=== PATIENT | male | born 1990 | race American Indian/Alaskan Native ===

== ENCOUNTER 2016-09-01 12:45 | Emergency (ER) | payer SELFPAY ==
[2016-09-01 13:53] VITALS: BP 134/88
[2016-09-01 14:20] LABS: Bilirubin,Urine NEG (Negative); Blood,Urine LG (Negative); Ketones,Urine NEG (Negative); Leukocyte Esterase,Urine LG (Negative); Mucus,Urine 1+ /HPF; Nitrite,Urine NEG (Negative); Urobilinogen,Urine < 2.0 mg/dL (<2.0)
[2016-09-01 14:21] LABS: WBC,Urine > 182.0 /HPF (0.0-6.0)
--- NOTE | 2016-09-01 14:48 | Emergency Department Report ---
HPI - General Chief Complaint: Back Pain/Injury Time Seen by Provider: 09/01/16 14:17 - HPI HPI: 25-year-old male presents today with right-sided low back pain 1 week. Positive for burning upon urination, increased urinary frequency and urgency. Patient states that he tried Azo with some relief. Describes his pain as 8 out of 10 throbbing pain that comes and goes. Denies any preceding event or heavy lifting. Denies history of kidney stones. Positive for nausea and blood in urine. Denies fever, chills, chest pain, shortness of breath, abdominal pain, penile discharge. Patient is not currently sexually active. ED Past Medical Hx - Past Medical History Previous Medical History?: No - Surgical History Past Surgical History?: No - Social History Smoking Status: Current Every Day Smoker Substance Use Type: Alcohol, Non Opiate Pain - Medications Home Medications: Home Medications Medication Instructions Recorded Confirmed Last Taken Type Levofloxacin [Levaquin TAB] 750 mg PO QDAY #7 tablet 09/01/16 Unknown Rx Phenazopyridine [Pyridium] 200 mg PO TID #6 tab 09/01/16 Unknown Rx ED Review of Systems ROS: Stated complaint: LOWER BACK PAIN, PAINFUL URINATION Other details as noted in HPI Constitutional: denies: chills, fever, malaise Eyes: denies: eye pain ENT: denies: ear pain, throat pain, congestion Respiratory: denies: cough, shortness of breath, wheezing Cardiovascular: denies: chest pain, palpitations Endocrine: no symptoms reported Gastrointestinal: denies: abdominal pain, nausea, vomiting Genitourinary: urgency, dysuria, frequency, hematuria. denies: discharge, testicular pain, testicular mass Musculoskeletal: back pain Skin: denies: rash Neurological: denies: headache, weakness Physical Exam - Physical Exam Vital Signs: Vital Signs 09/01/16 13:50 Temperature 98.3 F Pulse Rate 97 H Respiratory 20 Rate Blood Pressure 134/88 O2 Sat by Pulse 98 Oximetry Physical Exam: GENERAL: The patient is well-developed and well-nourished. Patient is in NAD. HEAD: Normocephalic. Atraumatic. CHEST/LUNGS: Clear to auscultation throughout. HEART/CARDIOVASCULAR: Regular rate and rhythm. No murmurs, rubs or gallops. ABDOMEN: Abdomen is soft, nontender. Bowel sounds normoactive. No guarding or rebound tenderness. Negative for CVA tenderness bilaterally. EXTREMITIES: Peripheral pulses intact. Capillary refill less than 2 seconds. NEURO: Alert and oriented x 3. Normal gait. ED Course Vital Signs 09/01/16 13:50 Temperature 98.3 F Pulse Rate 97 H Respiratory 20 Rate Blood Pressure 134/88 O2 Sat by Pulse 98 Oximetry ED Medical Decision Making - Lab Data Vital Signs 09/01/16 13:50 Temperature 98.3 F Pulse Rate 97 H Respiratory 20 Rate Blood Pressure 134/88 O2 Sat by Pulse 98 Oximetry Lab Results 09/01/16 Range/Units 13:58 Urine Color Yellow (Yellow) Urine Turbidity Slightly-cloudy (Clear) Urine pH 6.0 (5.0-7.0) Ur Specific Otis 1.011 (1.003-1.030) Urine Protein 100 mg/dl (Negative) mg/dL Urine Glucose (UA) Neg (Negative) mg/dL Urine Ketones Neg (Negative) mg/dL Urine Blood Lg (Negative) Urine Nitrite Neg (Negative) Urine Bilirubin Neg (Negative) Urine Urobilinogen < 2.0 (<2.0) mg/dL Ur Leukocyte Esterase Lg (Negative) Urine WBC (Auto) > 182.0 H (0.0-6.0) /HPF Urine RBC (Auto) 50.0 (0.0-6.0) /HPF U Epithel Cells (Auto) < 1.0 (0-13.0) /HPF Urine Mucus 1+ /HPF - Medical Decision Making 25-year-old male presents today with a right-sided lower back pain, dysuria, increased urinary frequency and urgency and hematuria 1 week. His urinalysis reveals large leukocyte esterase, increased urine WBC and large blood in urine. Patient is in no acute distress at this time. He will be discharged home and is encouraged to follow up with a primary care provider. He will be sent home on levofloxacin and Pyridium and is encouraged to return to the emergency room for any worsening symptoms. Critical care attestation.: If time is entered above; I have spent that time in minutes in the direct care of this critically ill patient, excluding procedure time. ED Disposition Clinical Impression: UTI (urinary tract infection) Qualifiers: Urinary tract infection type: acute cystitis Hematuria presence: with hematuria Qualified Code(s): N30.01 - Acute cystitis with hematuria Disposition: DISCHARGED TO HOME OR SELFCARE Is pt being admited?: No Does the pt Need Aspirin: No Condition: Stable Instructions: Urinary Tract Infection in Men (ED) Additional Instructions: Follow-up with primary care provider. Return to the emergency department if symptoms worsen. Prescriptions: Levofloxacin [Levaquin TAB] 750 mg PO QDAY #7 tablet Phenazopyridine [Pyridium] 200 mg PO TID #6 tab Referrals: PRIMARY CARE, [Primary Care Provider] - 3-5 Days [facility] [Outside] - 3-5 Days Forms: Work/School Release Form(ED) Time of Disposition: 14:52
== END 2016-09-01 15:18 | disposition home or self-care (01) ==
LOC: ED 12:45
DX: N30.01 Acute cystitis with hematuria (principal); F17.200 Nicotine dependence, unspecified, uncomplicated
CPT/HCPCS: 81001; 99283